=== PATIENT | female | born 1975 | race Caucasian/White ===

== ENCOUNTER → 2016-08-30 | Outpatient (CLI) | payer OTHER ==
[~2016-08-30] MED LIST: CETI10CA PO; DICY20TA10 PO; DOCU-143 PO; DOCU100T7 PO; FERR-57 PO; FLUO10CA19 PO; FLUO20CA25 PO; HYDR-3812 PO; HYDR-757 PO; HYOS0.1234 PO; IBP600T1 PO; LEVO1TAB72 PO; ONDA8TAB9 PO; OXYC-12 PO; OXYC-197 PO; PREN1TAB39 PO
--- OUTSIDE RECORDS SUMMARY | 2016-08-30 09:15 | XMS REPORT ---
Author Author MARIANO LUCERO [facility] eClinicalWorks Address Unknown Phone Unavailable Care Team Providers Care Manager Shell Name Role Phone MARIANO LUCREO CP Unavailable Allergies, Adverse Reactions, Alerts Substance Reaction Event Type Penicillins hives Non Drug Allergy Wellbutrin 100 Mg Tablet twitching of eye Non Drug Allergy Problems Problem Type Condition ICD-9 Code Onset Dates Condition Status Problem Allergic rhinitis, cause unspecified 477.9 Active Problem Acute sinusitis, unspecified 461.9 Active Problem Cough 786.2 Active Problem Unspecified iron deficiency anemia 280.9 Active Problem Ingrowing nail 703.0 Active Problem Allergic rhinitis 477.9 Active Problem Unspecified episodic mood disorder 296.90 Active Problem General counseling for prescription of oral contraceptives V25.01 Active Problem Other malaise and fatigue 780.79 Active Problem Generalized anxiety disorder 300.02 Active Assessment Allergic rhinitis 477.9 Active Problem Irritable bowel syndrome 564.1 Active Problem DTAP TEST V06.1 Active Problem Unspecified vaginitis and vulvovaginitis 616.10 Active Medications Medication Code System Code Instructions Start Date End Date Status Dosage Falmina [facility] [place] [address]-45 0.1-20 MG-MCG Orally Once a day 1 tablet Multi Vitamin Daily [facility] [place] 2] [address] Orally Once a day 1 tablet Hyoscyamine Sulfate [facility] [place] 2] [address]-46 0.375 mg 2 times a day January 03, 2012 1 tablet on the tongue and allow to dissolve before meals as needed Acidophilus [facility] [place] 2] [address]-82 November 25, 2013 1 Capsule by Oral route 1 time per day Cetirizine HCl [facility] [place] 2] 04636103219 10 MG TAKE ONE TABLET BY MOUTH DAILY Famotidine [facility] [place]NOTE 2] [address]-62 20 MG Orally 2 times a day January 28, 2015 1 tablet at bedtime BuSpar NDC 0 10 mg January 14, 2014 take 1 tablet (10 mg) by oral route 2 times per day Procedures Procedure Coding System Code Date KENALOG 40 MG/ML (PER 10 MG) CPT-4 J3301 Apr 22, 2015 THER/PROPH/DIAG INJ, SC/IM CPT-4 01082 Apr 22, 2015 Office Visit, Est Pt., Level 3 CPT-4 12052 Apr 22, 2015 Vital Signs Date/Time: Apr 22, 2015 Temperature 98.6 F Weight 153.4 lbs Height 63 in BMI 27.17 Index Blood Pressure Diastolic 66 mmHg Blood Pressure Systolic 118 mmHg Cardiac Monitoring Heart Rate 68 bpm Results No Known Results Summary Purpose eClinicalWorks Submission
--- NOTE | 2016-08-30 16:34 | Diagnostic Imaging Report ---
Exam: Ultrasound of the right axilla. Indication: Lump in the axilla. Findings: The area of palpable lump in the right axilla was scanned with no underlying abnormality seen. Impression: Negative study. The patient had a screening mammogram in July performed at [facility] and was reportedly negative. The mammogram might not include the entire axilla however. Clinical followup is recommended. BI-RADS 1. Dictated by: Dictated on workstation # [id number]
== END ==
LOC: RAD 09:12
PROVIDERS: ATTEND Nurse Practitioner Family
DX: N63 Unspecified lump in breast (principal)

== ENCOUNTER 2016-11-06 16:02 | Emergency (ER) | payer OTHER ==
[~2016-11-06] VITALS: Ht 162.6 cm; Wt 68.0 kg
[~2016-11-06 16:02] MED LIST changes: -DICY20TA10 PO; -DOCU-143 PO; -HYDR-3812 PO; -HYDR-757 PO; -LEVO1TAB72 PO; -ONDA8TAB9 PO; -OXYC-197 PO
[2016-11-06] MEDS ORDERED: DICY20TA10 PO (16:55)
[2016-11-06] MEDS ORDERED: LEVO1TAB72 PO (16:55)
[2016-11-06] MEDS ORDERED: CETI10CA PO (16:55)
[2016-11-06] MEDS ORDERED: fentaNYL INJECTION 100 MCG/2 ML AMP IVP ONE ×2 (17:00→18:00)
[2016-11-06] MEDS ORDERED: ONDANSETRON 4 MG/2 ML (SDV) Z0FRAN IVP ONE (17:00)
--- NOTE | 2016-11-06 17:01 | ED Abdominal Pain ---
General Chief Complaint: Abdominal/GI Problems Stated Complaint: ABD PAIN Nursing Triage Note: Pt c/o upper abd pain and nausea since this morning. Sepsis Screen: No Definite Risk Source of Information: Patient Exam Limitations: No Limitations History of Present Illness Time Seen By Provider: 17:00 Initial Comments To ER with epigastric abdominal pain. This radiates through to her back. Began this morning at 11 a.m. Last meal was at 10 a.m. and she had scrambled eggs at that time. She does to have her gallbladder. No fevers or chills. No change in bowel habits or dysuria. Timing/Duration: 4-6 Hours Severity/Quality: Severe Location: Epigastric Radiation: Back Activities at Onset: None Associated Symptoms: Nausea/Vomiting Allergies and Home Medications Allergies Coded Allergies: Penicillins (Unverified Allergy, 05/26/11) Home Medications Cetirizine HCl 10 Mg Capsule 10 MG PO DAILY (Reported) Dicyclomine HCl 20 Mg Tablet #120 20 MG PO DAILY (Reported) Levonorgestrel-Ethin Estradiol 1 Each Tablet #84 1 TAB PO DAILY (Reported) Review of Systems Constitutional: see HPINo chills, No fever EENTM: No Symptoms Reported Respiratory: No Symptoms Reported Cardiovascular: No Symptoms Reported Gastrointestinal: See HPI Abdominal Pain Genitourinary: No Symptoms Reported Musculoskeletal: no symptoms reported Skin: no symptoms reported Psychiatric/Neurological: No Symptoms Reported Endocrine: No Symptoms Reported Hematologic/Lymphatic: No Symptoms Reported Past Bpbanyd-Oeguvw-Bjbjun Hx Patient Social History Alcohol Use: Occasionally Uses Recreational Drug Use: No Smoking Status: Never a Smoker Recent Foreign Travel: No Contact w/Someone Who Travel: No Recent Infectious Disease Expo: No Recent Hopitalizations: No Seasonal Allergies Seasonal Allergies: Yes Surgeries HX Surgeries: Yes Surgeries: Appendectomy, Section, Tonsillectomy Respiratory Hx Respiratory Disorders: No Cardiovascular Hx Cardiac Disorders: No Neurological Hx Neurological Disorders: No Reproductive System Hx Reproductive Disorders: No Genitourinary Hx Genitourinary Disorders: No Gastrointestinal Hx Gastrointestinal Disorders: Yes Gastrointestinal Disorders: Irritable Bowel Musculoskeletal Hx Musculoskeletal Disorders: No Endocrine Hx Endocrine Disorders: No HEENT HX ENT Disorders: No Cancer Hx Cancer: No Psychosocial Hx Psychiatric Problems: No Blood Transfusions Hx Blood Disorders: No Physical Exam Vital Signs VS - Last 72 Hours, by Label 11/06/16 16:51 Temp 97.6 Pulse 68 Resp 18 B/P 122/65 Pulse Ox 100 O2 Delivery Room Air Capillary Refill : Less Than 3 Seconds General Appearance: WD/WN no apparent distress HEENT: PERRL/EOMI normal ENT inspection Neck: non-tender full range of motion Respiratory: normal breath sounds no respiratory distress no accessory muscle use Cardiovascular: regular rate, rhythm no murmur Gastrointestinal: normal bowel sounds soft tenderness Extremities: normal range of motion non-tender Neurologic/Psychiatric: alert normal mood/affect oriented x 3 Skin: normal color warm/dry Focused Exam Lactic Acid Level Laboratory Tests Test 11/06/16 17:40 Alanine Aminotransferase (ALT/SGPT) 24U/L (0-55) Albumin 4.1G/DL (3.2-4.5) Alkaline Phosphatase 50U/L (40-136) Anion Gap 12MMOL/L (5-14) Aspartate Amino Transf (AST/SGOT) 17U/L (5-34) BUN/Creatinine Ratio 14 Blood Urea Nitrogen 10MG/DL (7-18) Calcium Level 9.5MG/DL (8.5-10.1) Carbon Dioxide Level 21MMOL/L (21-32) Chloride Level 103MMOL/L (98-107) Creatinine 0.74MG/DL (0.60-1.30) Estimat Glomerular Filtration Rate > 60 Glucose Level 117MG/DL (70-105) H Lipase 6U/L (8-78) L Potassium Level 3.8MMOL/L (3.6-5.0) Sodium Level 136MMOL/L (135-145) Total Bilirubin 0.8MG/DL (0.1-1.0) Total Protein 7.2G/DL (6.4-8.2) Progress/Results/Core Measures Results/Orders Lab Results Laboratory Tests Test 11/06/16 17:10 11/06/16 17:40 11/06/16 17:56 Range/Units Basophils # (Auto) 0.0 0.0-0.1 10^3/uL Basophils (%) (Auto) 0 0-10 % Eosinophils # (Auto) 0.1 0.0-0.3 10^3/uL Eosinophils (%) (Auto) 1 0-10 % Hematocrit 41 35-52 % Hemoglobin 14.0 11.5-16.0 G/DL Lymphocytes # (Auto) 1.5 1.0-4.0 X 10^3 Lymphocytes (%) (Auto) 13 12-44 % Mean Corpuscular Hemoglobin 31 25-34 PG Mean Corpuscular Hemoglobin Concent 34 32-36 G/DL Mean Corpuscular Volume 92 80-99 FL Mean Platelet Volume 10.2 7.4-10.4 FL Monocytes # (Auto) 0.5 0.0-1.0 X 10^3 Monocytes (%) (Auto) 4 0-12 % Neutrophils # (Auto) 9.7 H 1.8-7.8 X 10^3 Neutrophils (%) (Auto) 82 H 42-75 % Platelet Count 227 130-400 10^3/uL Red Blood Count 4.46 4.35-5.85 10^6/uL Red Cell Distribution Width 11.6 10.0-14.5 % White Blood Count 11.8 H 4.3-11.0 10^3/uL Alanine Aminotransferase (ALT/SGPT) 24 0-55 U/L Albumin 4.1 3.2-4.5 G/DL Alkaline Phosphatase 50 40-136 U/L Anion Gap 12 5-14 MMOL/L Aspartate Amino Transf (AST/SGOT) 17 5-34 U/L BUN/Creatinine Ratio 14 Blood Urea Nitrogen 10 7-18 MG/DL Calcium Level 9.5 8.5-10.1 MG/DL Carbon Dioxide Level 21 21-32 MMOL/L Chloride Level 103 98-107 MMOL/L Creatinine 0.74 0.60-1.30 MG/DL Estimat Glomerular Filtration Rate > 60 Glucose Level 117 H 70-105 MG/DL Lipase 6 L 8-78 U/L Potassium Level 3.8 3.6-5.0 MMOL/L Sodium Level 136 135-145 MMOL/L Total Bilirubin 0.8 0.1-1.0 MG/DL Total Protein 7.2 6.4-8.2 G/DL Urine Bacteria TRACE /HPF Urine Bilirubin NEGATIVE NEGATIVE Urine Casts NONE /LPF Urine Clarity CLEAR Urine Color YELLOW Urine Crystals NONE /LPF Urine Culture Indicated NO Urine Glucose (UA) NEGATIVE NEGATIVE Urine Ketones 4+ H NEGATIVE Urine Leukocyte Esterase 1+ H NEGATIVE Urine Mucus NEGATIVE /LPF Urine Nitrite NEGATIVE NEGATIVE Urine Protein NEGATIVE NEGATIVE Urine RBC 2-5 H /HPF Urine RBC (Auto) 3+ H NEGATIVE Urine Specific [place] 1.030 H 1.016-1.022 Urine Squamous Epithelial Cells 2-5 /HPF Urine Urobilinogen NORMAL NORMAL MG/DL Urine WBC 0-2 /HPF Urine pH 5 5-9 My Orders Orders-HERNAN DELUCA APRN Cbc With Automated Diff (11/06/16 16:55) Comprehensive Metabolic Panel (11/06/16 16:55) Lipase (11/06/16 16:55) Ua Culture If Indicated (11/06/16 16:55) Ondansetron Injection (Zofran Injectio (11/06/16 17:00) Fentanyl Injection (Sublimaze Injection (11/06/16 17:00) Fentanyl Injection (Sublimaze Injection (11/06/16 18:00) Us Gallbladder [id number] (11/06/16 18:12) Ketorolac Injection (Toradol Injection) (11/06/16 18:45) Promethazine Injection (Phenergan Injec (11/06/16 18:45) Oxycodone/Apap 5/325mg Tablet (Percocet (11/06/16 20:00) Medications Given in ED Current Medications Medications Dose Ordered Sig/Freedom Route Start Time Stop Time Status Last Admin Dose Admin Fentanyl Citrate 50 mcg ONCE ONCE IVP 11/06/16 17:00 11/06/16 17:01 DC 11/06/16 17:25 50 MCG Fentanyl Citrate 75 mcg ONCE ONCE IVP 11/06/16 18:00 11/06/16 18:01 DC 11/06/16 18:00 75 MCG Ketorolac Tromethamine 30 mg ONCE ONCE IVP 11/06/16 18:45 11/06/16 18:46 DC 11/06/16 18:41 30 MG Ondansetron HCl 8 mg ONCE ONCE IVP 11/06/16 17:00 11/06/16 17:01 DC 11/06/16 17:25 8 MG Promethazine HCl 12.5 mg ONCE ONCE IVP 11/06/16 18:45 11/06/16 18:46 DC 11/06/16 18:42 12.5 MG Vital Signs/I&O Vital Sign - Last 12Hours 11/06/16 16:51 Temp 97.6 Pulse 68 Resp 18 B/P 122/65 Pulse Ox 100 O2 Delivery Room Air Blood Pressure Mean: 84 Diagnostic Imaging Diagonstic Imaging: Ultrasound Comments NAME: ALEX MEDRANO MED REC#: [id number] PT STATUS: REG ER : 1975 PHYSICIAN: HERNAN DELUCA APRN ADMIT DATE: 11/06/16/ER Draft Date of Exam:11/06/16 US GALLBLADDER [id number] PROCEDURE: US gallbladder. TECHNIQUE: Multiple real-time grayscale images were obtained over the right upper quadrant in various projections. INDICATION: Right-sided abdominal pain. COMPARISON: No comparison available. FINDINGS: The visualized portions of the pancreas are unremarkable. There is no evidence of focal intrahepatic abnormality. There is no intrahepatic biliary dilatation. The gallbladder is distended measuring up to 10.3 cm in length x 4.4 cm in transverse dimension. There are multiple gallstones demonstrated within the gallbladder. There is no evidence of gallbladder wall thickening or pericholecystic fluid. The common bile duct appears normal in caliber. Right kidney is nonobstructed. There is no ascites. IMPRESSION: 1. There are multiple gallstones demonstrated within the gallbladder. The gallbladder appears distended. There are, however, no additional signs to suggest cholecystitis. There is no gallbladder wall thickening or evidence of pericholecystic fluid. There is no evidence of abnormal biliary dilatation. There is no ascites or free fluid. Further assessment could be considered with nuclear HIDA scan. Dictated on workstation # [id number] Dict: 11/06/161946 Trans: 11/06/161954 [facility] [id number] Interpreted by: CALVIN DINH MD Electronically signed by: Departure Communication Progress Notes I did discuss the case with Dr. Dean who happens to be present in the emergency room. We'll discharge her to home and have her follow-up with him this week in the clinic. 2016-after 125 g of fentanyl and 2 separate doses, 8 mg of Zofran and 12.5 mg of Phenergan IV, and 30 mg of Toradol IV her pain is controlled as is her nausea. Impression Impression: Primary Impression: Symptomatic cholelithiasis Disposition: HOME, SELF-CARE Condition: Stable Departure-Patient Inst. Decision time for Depature: 20:15 Referrals: DARYA GOLDMAN MD (PCP/Family) Primary Care Physician KATIE DEAN DO Patient Instructions: Gallstones (DC) Add. Discharge Instructions: 1. Low fat low dairy product diet 2. Return to ER for any fevers, intolerable pain or vomiting 3. Pain pills and nausea pills as directed All discharge instructions reviewed with patient and/or family. Voiced understanding. Scripts Ondansetron (Zofran Odt)8 Mg Tab.rapdis8 Mg PO Q6H PRN NAUSEA #10 TAB Prov:HERNAN DELUCA JOURNAL ENTRY AUDIT CLERK 11/06/16 Hydrocodone/Acetaminophen ([place] 5-325 Tablet)1 Each Tablet1 Each PO Q4H PRN PAIN #20 TAB Prov:HERNAN DELUCA JOURNAL ENTRY AUDIT CLERK 11/06/16 HERNAN DELUCA APRN Nov 06, 2016 17:01
[2016-11-06 17:16] LABS: BASOPHILS % (AUTO) 0 % (0-10); EOSINOPHILS # (AUTO) 0.1 10^3/uL (0.0-0.3); EOSINOPHILS % (AUTO) 1 % (0-10); LYMPHOCYTES # (AUTO) 1.5 X 10^3 (1.0-4.0); LYMPHOCYTES % (AUTO) 13 % (12-44); MEAN CORPUSCULAR HEMOGLOBIN 31 PG (25-34); MEAN CORPUSCULAR HGB CONC 34 G/DL (32-36); MEAN CORPUSCULAR VOLUME 92 FL (80-99); MEAN PLATELET VOLUME 10.2 FL (7.4-10.4); MONOCYTES # (AUTO) 0.5 X 10^3 (0.0-1.0); MONOCYTES % (AUTO) 4 % (0-12); NEUTROPHILS # (AUTO) 9.7 X 10^3 (1.8-7.8); NEUTROPHILS % (AUTO) 82 % (42-75); PLATELET COUNT 227 10^3/uL (130-400); RED BLOOD COUNT 4.46 10^6/uL (4.35-5.85); RED CELL DISTRIBUTION WIDTH 11.6 % (10.0-14.5); WHITE BLOOD COUNT 11.8 10^3/uL (4.3-11.0)
[2016-11-06 18:03] LABS: BILIRUBIN,URINE NEGATIVE (NEGATIVE); KETONES,URINE 4+ (NEGATIVE); LEUKOCYTE ESTERASE ,URINE 1+ (NEGATIVE); NITRITE,URINE NEGATIVE (NEGATIVE); PH,URINE 5 (5-9); PROTEIN,URINE NEGATIVE (NEGATIVE); UROBILINOGEN,URINE NORMAL (NORMAL)
[2016-11-06 18:06] LABS: ALANINE AMINOTRANSFERASE 24 U/L (0-55); ALBUMIN 4.1 G/DL (3.2-4.5); ANION GAP 12 MMOL/L (5-14); ASPARTATE AMINO TRANSFERASE 17 U/L (5-34); BILIRUBIN,TOTAL 0.8 MG/DL (0.1-1.0); BLOOD UREA NITROGEN 10 MG/DL (7-18); BUN/CREATININE RATIO 14; CALCIUM 9.5 MG/DL (8.5-10.1); CARBON DIOXIDE 21 MMOL/L (21-32); CHLORIDE 103 MMOL/L (98-107); CREATININE SERUM 0.74 MG/DL (0.60-1.30); GFR ESTIMATED > 60; GLUCOSE 117 MG/DL (70-105); LIPASE 6 U/L (8-78); POTASSIUM 3.8 MMOL/L (3.6-5.0); SODIUM 136 MMOL/L (135-145); TOTAL PROTEIN 7.2 G/DL (6.4-8.2)
[2016-11-06 18:13] LABS: WBC,URINE 0-2 /HPF
[2016-11-06] MEDS ORDERED: PROMETHAZINE INJ 25 MG/ML (PHENERGAN) AMP IVP ONE (18:45)
[2016-11-06] MEDS ORDERED: KETOROLAC 30 MG/ML VIAL IVP ONE (18:45)
--- NOTE | 2016-11-06 19:55 | Diagnostic Imaging Report ---
PROCEDURE: US gallbladder. TECHNIQUE: Multiple real-time grayscale images were obtained over the right upper quadrant in various projections. INDICATION: Right-sided abdominal pain. COMPARISON: No comparison available. FINDINGS: The visualized portions of the pancreas are unremarkable. There is no evidence of focal intrahepatic abnormality. There is no intrahepatic biliary dilatation. The gallbladder is distended measuring up to 10.3 cm in length x 4.4 cm in transverse dimension. There are multiple gallstones demonstrated within the gallbladder. There is no evidence of gallbladder wall thickening or pericholecystic fluid. The common bile duct appears normal in caliber. Right kidney is nonobstructed. There is no ascites. IMPRESSION: 1. There are multiple gallstones demonstrated within the gallbladder. The gallbladder appears distended. There are, however, no additional signs to suggest cholecystitis. There is no gallbladder wall thickening or evidence of pericholecystic fluid. There is no evidence of abnormal biliary dilatation. There is no ascites or free fluid. Further assessment could be considered with nuclear HIDA scan. Dictated by: Dictated on workstation # [id number]
[2016-11-06] MEDS ORDERED: oxyCODONE/APAP 5/325MG (PERCOCET 5) TABLET PO ONE (20:00)
[2016-11-06] MEDS ORDERED: RX-ONDANSETRON 4 MG ODT (ZOFRAN) PPK #4 PO STA (20:14)
[2016-11-06] MEDS ORDERED: ONDA8TAB9 PO (20:16)
[2016-11-06] MEDS ORDERED: HYDR-757 PO (20:16)
[2016-11-06] MEDS ORDERED: OXYC-197 PO (20:28)
[2016-11-06 20:29] VITALS: BP 119/81
== END 2016-11-06 20:29 | disposition home or self-care (01) ==
LOC: EDUNIT# 16:02 → ER 16:03
DX: K80.20 Calculus of gallbladder without cholecystitis without obstruction (principal)
CPT/HCPCS: 36415; 76705; 80053; 81000; 83690; 85025; 96374; 96375; 96376; 99283

== ENCOUNTER 2016-11-08 09:43 | Outpatient (CLI) | payer OTHER ==
[~2016-11-08] VITALS: Ht 162.6 cm; Wt 67.2 kg
[~2016-11-08 09:43] MED LIST changes: +DICY20TA10 PO; +HYDR-757 PO; +LEVO1TAB72 PO; +ONDA8TAB9 PO; +OXYC-197 PO
[2016-11-08 09:58] VITALS: BP 108/69
[2016-11-11] MEDS ORDERED: DOCU-143 PO (12:59)
[2016-11-11] MEDS ORDERED: HYDR-3812 PO (12:59)
== END 2016-11-08 10:14 | disposition home or self-care (01) ==
LOC: PREOP 09:43
PROVIDERS: ATTEND Surgery
DX: Z01.818 Encounter for other preprocedural examination (principal); Z11.2 Encounter for screening for other bacterial diseases; K80.20 Calculus of gallbladder without cholecystitis without obstruction
CPT/HCPCS: 87081

== ENCOUNTER 2016-11-11 09:00 | Day surgery (SDC) | payer OTHER ==
[~2016-11-11] VITALS: Ht 162.6 cm; Wt 67.2 kg
[2016-11-11] MEDS: LACTATED RINGERS 1,000 ML IV PRN ×2 (09:00→12:35)
[2016-11-11] MEDS ORDERED: CLINDAMYCIN 600 MG/50 ML IVPB 50 ML IV ONE (09:15)
[2016-11-11 09:26] VITALS: BP 112/49
--- NOTE | 2016-11-11 10:26 | Progress Note-Pre Operative ---
Pre-Operative Progress Note H&P Reviewed The H&P was reviewed, patient examined and no changes noted. Date H&P Reviewed: Nov 11, 2016 Time H&P Reviewed: 10:26 Pre-Operative Diagnosis: SYMPTOMATIC CHOLELITHIASIS KATIE DEAN DO Nov 11, 2016 10:26
[2016-11-11] MEDS ORDERED: SEVOFLURANE (ULTANE) 15 ML INHAL SOLN ONE ×5 (10:42→13:03)
[2016-11-11] MEDS ORDERED: proPOfol 200 MG/20 ML (DIPRIVAN) VIAL IV ONE (10:42)
[2016-11-11] MEDS ORDERED: HURRICAINE EXT TUBE (BENZOCAINE) ONE (10:42)
[2016-11-11] MEDS ORDERED: LACTATED RINGERS 1,000 ML IV ONE (10:42)
[2016-11-11] MEDS ORDERED: LIDOCAINE PF 2% 10 ML (XYLOCAINE) AMP ONE (10:42)
[2016-11-11] MEDS ORDERED: DEXAMETHASONE PF 10 MG/ML (DECADRON) VIAL ONE (10:42)
[2016-11-11] MEDS ORDERED: ATRACURIUM 50 MG/5 ML (TRACRIUM) IV ONE (10:42)
[2016-11-11] MEDS ORDERED: MIDAZOLAM 2 MG/2 ML (VERSED) VIAL ONE (10:43)
[2016-11-11] MEDS ORDERED: fentaNYL INJECTION 100 MCG/2 ML AMP ONE ×2 (10:43→13:53)
[2016-11-11] MEDS ORDERED: BUPIVACAINE 0.5% 30 ML (SENSORCAINE) VIAL ONE (10:57)
[2016-11-11] MEDS ORDERED: LIDOCAINE 1% INJ 20 ML (XYLOCAINE) VIAL ONE (10:57)
--- NOTE | 2016-11-11 12:57 | Progress Note-Post Operative ---
Post-Operative Progess Note Video System Repairer Dr. Hawkins Pre-Operative Diagnosis SYMPTOMATIC CHOLELITHIASIS Post-Operative Diagnosis acute cholecystitis, cholelithiasis Post-Op Procedure Note Date of Procedure: Nov 11, 2016 Name of Procedure: lap gina c ioc Procedure Note/Findings see note Anesthesia Type general Estimated blood loss (mL): minimal Specimen(s) collected gallbladder KATIE DEAN DO Nov 11, 2016 12:57 pm
[2016-11-11] MEDS ORDERED: HYDR-3812 PO (12:59)
[2016-11-11] MEDS ORDERED: DOCU-143 PO (12:59)
[2016-11-11] MEDS ORDERED: HYDROcodone/APAP 5 MG/325 MG (LORTAB) TAB PO PRN (13:00)
--- NOTE | 2016-11-11 13:00 | Discharge Inst-Simple/Standard ---
Discharge Inst-Standard Discharge Medications New, Converted or Re-Newed RX: RX on Chart Patient Instructions/Follow Up Plan of Care/Instructions/FU: 2 weeks Krissy Activity as Tolerated: No Discharge Diet: Regular Diet Other Inst to Patient Follow up Appt: Make appointment for 2 weeks. Instructions: No lifting greater than 10 pounds. No strenuous activity. May shower in 24 hours, no tub bath or soaking. Use incentive spirometer at home as directed. No Smoking Skin/Wound Care: You have special glue over incisions it will fall off on its own. Symptoms to Report: Appetite Changes, Extremity Discoloration, Numbness/Tingling, Swelling Increased , Bleeding Excessive, Eyesight Changes, Pain Increased, Urine Color Change, Constipation(Persistent), Fever over 101 degree F, Pain/Pressure in chest, Urinating Difficulty, Cough Up/Vomit Blood, Heart Beat Irreg/Pounding, Pain/ Pressure in jaw, Vaginal Bleeding Increase, Cramps in feet or legs, Lightheadedness, Pain/Pressure in shoulder, Diarrhea(Persistent), Memory Changes Suddenly, Questions/Concerns, Weight gain consecutive days, Dizziness/ Fainting, Nausea/Vomiting, Shortness of Breath, Weight gain over 2 pounds. If eyes or skin turn yellow notify physician. If questions or concerns contact your physician Or seek help at emergency department. KATIE DEAN DO Nov 11, 2016 1:00 pm
[2016-11-11] MEDS ORDERED: MEPERIDINE (DEMEROL) INJ 50 MG/ML IV PRN (13:30)
[2016-11-11] MEDS ORDERED: PROMETHAZINE INJ 25 MG/ML (PHENERGAN) AMP IV PRN (13:30)
[2016-11-11] MEDS ORDERED: ONDANSETRON 4 MG/2 ML (SDV) Z0FRAN IV PRN (13:30)
[2016-11-11] MEDS ORDERED: fentaNYL INJECTION 100 MCG/2 ML AMP IV PRN (13:30)
[2016-11-11] MEDS: morphine INJ 10 MG/ML 1ML (SYR OR VIAL) IV PRN ×2 (13:32→13:40)
--- NOTE | 2016-11-11 13:58 | Diagnostic Imaging Report ---
INDICATION: Right upper quadrant pain. DISCUSSION: Fluoroscopic support was provided during intraoperative cholangiogram. Please see the operative report for full detail. Common bile duct is not dilated. There is progression of contrast into the duodenum. Fluoroscopy time: 8 seconds. 3 mL Omnipaque 300. IMPRESSION: Intraoperative cholangiogram. Dictated by: Dictated on workstation # [id number]
[2016-11-11 14:25] VITALS: BP 118/67
[2016-11-11 14:53] VITALS: BP 104/57
[2016-11-11 15:25] VITALS: BP 103/65
[2016-11-11 15:55] VITALS: BP 103/65
--- NOTE | 2016-11-12 09:48 | OPERATIVE REPORT ---
PROCEDURE PHYSICIAN: KATIE DEAN DATE OF PROCEDURE: 11/11/2016 PREOPERATIVE DIAGNOSIS: Symptomatic cholelithiasis. POSTOPERATIVE DIAGNOSIS: Acute cholecystitis, cholelithiasis. PROCEDURE: Laparoscopic cholecystectomy with intraoperative cholangiogram. SURGEON: Krissy. DELICATESSEN DEPARTMENT MANAGER: Dr. Hawkins, assist in retraction, dissection, and closure. ANESTHESIA: General. ESTIMATED BLOOD LOSS: Minimal. COMPLICATIONS: None. INDICATIONS: The patient is a 49-year-old female with right upper quadrant abdominal pain. She had a gallbladder ultrasound demonstrating cholelithiasis. She understands the risks and benefits of the procedure and wishes to proceed with procedures. Consent was signed on the chart. PROCEDURE: The patient was taken to the operating suite. She was prepped and draped in the sterile fashion. A surgical pause was performed. Local anesthetic was infiltrated of 0.50% Marcaine, 1% lidocaine at 50:50 ratio was injected just superior to the umbilicus. Number 15 blade scalpel was used to make an incision. Cautery was used to dissect down to the fascia. The fascia was scored and grasped with Kochers, elevated and the abdomen was entered, using 0 Vicryl in a [id number] stitch was placed. The balloon trocar was then placed and the balloon was insufflated and a pneumoperitoneum was achieved. Under direct visualization of the laparoscope, a 5 minute trocar was placed in the subxiphoid region and two 5-mm trocars were placed in the right upper quadrant. The gallbladder was inflamed and edematous and erythematous. The gallbladder was grasped, elevated. The cystic duct and cystic artery were then dissected out. Clips were placed in the distal portion of the cystic duct and clips were placed on proximal and distal portion of the cystic artery. The cystic duct was then partially transected and an arrow catheter was inserted and cholangiogram was then performed. There were no filling defects. Contrast made its way into the duodenum without any difficulty. The catheter was removed. Clips were placed on proximal portion of the cystic duct. This was then completely transected along with the cystic artery and then hook cautery was used to dissect the gallbladder from the gallbladder fossa achieving hemostasis. Once removed, it was placed in an Endobag and removed through the 12 mm trocar site. The abdomen was then re-insufflated. Hemostasis had been achieved. The abdomen was irrigated with copious amounts of irrigation and suction. The 12 mm fascial defect was closed with 0 Vicryl that was already placed in a [id number]-ai-ohtfm fashion. The trocars were removed. The skin was then closed using 4-0 Monocryl. The abdomen was then washed and dried and Dermabond was placed. The patient tolerated the procedure well without complication. She was taken to recovery in stable condition. Job ID: [id number] Dictated Date: 11/11/2016 13:18:18 Fisher Scallop Date: 11/12/2016 09:37:33 / jayson
--- OUTSIDE RECORDS SUMMARY | 2016-11-13 12:11 | XMS REPORT ---
Author Author MARIANO LUCERO [facility] eClinicalWorks Address Unknown Phone Unavailable Care Team Providers Care Professor Of Voice Name Role Phone MARIANO LUCERO CP Unavailable Allergies, Adverse Reactions, Alerts Substance [...] Start Date End Date Status Dosage Falmina [facility] [place] [address]-47 0.1-20 MG-MCG Orally Once a day 1 tablet Multi Vitamin Daily [facility] [place] [address] Orally Once a day 1 tablet Hyoscyamine Sulfate [facility] [place] [address]-26 0.375 mg 2 times a day January 03, 2012 1 tablet on the tongue and allow to dissolve before meals as needed Acidophilus [facility] [place] [address]-04 November 25, 2013 1 Capsule by Oral route 1 time per day Cetirizine HCl [facility] [place] [id number] 10 MG TAKE ONE TABLET BY MOUTH DAILY Famotidine [facility] [place] [address]-45 20 MG Orally 2 times a day January 28, 2015 1 tablet at bedtime BuSpar NDC 0 10 mg January 14, 2014 take 1 tablet (10 mg) by oral route 2 times per day Procedures Procedure Coding System Code Date KENALOG 40 MG/ML (PER 10 MG) CPT-4 J3301 Apr 22, 2015 THER/PROPH/DIAG INJ, SC/IM CPT-4 14087 Apr 22, 2015 Office Visit, Est Pt., Level 3 CPT-4 85071 Apr 22, 2015 Vital Signs Date/Time: Apr 22, 2015 Temperature 98.6 F Weight 153.4 lbs Height 63 in BMI 27.17 Index Blood Pressure Diastolic 66 mmHg Blood Pressure Systolic 118 mmHg Cardiac Monitoring Heart Rate 68 bpm Results No Known Results Summary Purpose eClinicalWorks Submission
--- OUTSIDE RECORDS SUMMARY | 2016-11-13 12:11 | XMS REPORT | Continuity of Care Document ---
Author Author [facility] Address Unknown Phone Unavailable Allergies Active Description Code Type Severity Reaction Onset Reported/Identified Relationship to Patient Clinical Status Yes Penicillins Drug Allergy N/A N/A 09/23/2011 Yes Penicillins Drug Allergy 09/23/2011 Yes Wellbutrin 100 mg Tablet Drug Allergy N/A N/A 10/19/2011 Yes Wellbutrin 100 mg Tablet Drug Allergy 10/19/2011 Medications Problems Date Dx Coded Attending Type Code Diagnosis Diagnosed By 04/19/2011 465.9 UPPER RESPIRATORY INFECTION 04/19/2011 465.9 UPPER RESPIRATORY INFECTION 04/19/2011 LEE FROST MD 465.9 UPPER RESPIRATORY INFECTION 04/19/2011 RAHEL TRACY APRN 465.9 UPPER RESPIRATORY INFECTION 04/19/2011 RAHEL TRACY APRN 465.9 UPPER RESPIRATORY INFECTION 04/19/2011 ABEL AVILEZ APRN 465.9 UPPER RESPIRATORY INFECTION 09/23/2011 296.90 MOOD DISORDER 09/23/2011 300.02 AN GEN ANXIETY 09/23/2011 780.79 MALAISE AND FATIGUE 09/23/2011 799.22 IRRITIBILITY 09/23/2011 296.90 MOOD DISORDER 09/23/2011 300.02 AN GEN ANXIETY 09/23/2011 780.79 MALAISE AND FATIGUE 09/23/2011 799.22 IRRITIBILITY 09/23/2011 LEE FROST MD 296.90 MOOD DISORDER 09/23/2011 LEE FROST MD 300.02 AN GEN ANXIETY 09/23/2011 LEE FROST MD 780.79 MALAISE AND FATIGUE 09/23/2011 LEE FROST MD 799.22 IRRITIBILITY 09/23/2011 RAHEL TRACY APRN 296.90 MOOD DISORDER 09/23/2011 RAHEL TRACY APRN 300.02 AN GEN ANXIETY 09/23/2011 RAHEL TRACY APRN 780.79 MALAISE AND FATIGUE 09/23/2011 RAHEL TRACY APRN 799.22 IRRITIBILITY 09/23/2011 RAHEL TRACY APRN 296.90 MOOD DISORDER 09/23/2011 RAHEL TRACY APRN T 300.02 AN GEN ANXIETY 09/23/2011 RAHEL TRACY APRN T 780.79 MALAISE AND FATIGUE 09/23/2011 RAHEL TRACY APRN 799.22 IRRITIBILITY 09/23/2011 ABEL AVILEZ APRN R 296.90 MOOD DISORDER 09/23/2011 ABEL AVILEZ APRN R 300.02 AN GEN ANXIETY 09/23/2011 ABEL AVILEZ APRN R 780.79 MALAISE AND FATIGUE 09/23/2011 ABEL AVILEZ APRN R 799.22 IRRITIBILITY 11/23/2011 V25.01 CONTRACEPTION - ORAL CONTRACEPTION 11/23/2011 V25.01 CONTRACEPTION - ORAL CONTRACEPTION 11/23/2011 LEE FROST MD V25.01 CONTRACEPTION - ORAL CONTRACEPTION 11/23/2011 RAHEL TRACY APRN V25.01 CONTRACEPTION - ORAL CONTRACEPTION 11/23/2011 RAHEL TRACY APRN V25.01 CONTRACEPTION - ORAL CONTRACEPTION 11/23/2011 ABEL AVILEZ APRN R V25.01 CONTRACEPTION - ORAL CONTRACEPTION 01/03/2012 564.1 IRRITABLE BOWEL SYNDROME 01/03/2012 564.1 IRRITABLE BOWEL SYNDROME 01/03/2012 LEE FROST MD N 564.1 IRRITABLE BOWEL SYNDROME 01/03/2012 RAHEL TRACY APRN 564.1 IRRITABLE BOWEL SYNDROME 01/03/2012 RAHEL TRACY APRN 564.1 IRRITABLE BOWEL SYNDROME 01/03/2012 ABEL AVILEZ APRN R 564.1 IRRITABLE BOWEL SYNDROME 03/21/2012 280.9 ANEMIA, IRON DEFICIENCY 03/21/2012 703.0 NAIL INGROWN 03/21/2012 280.9 ANEMIA, IRON DEFICIENCY 03/21/2012 703.0 NAIL INGROWN 03/21/2012 LEE FROST MD 280.9 ANEMIA, IRON DEFICIENCY 03/21/2012 LEE FROST MD 703.0 NAIL INGROWN 03/21/2012 RAHEL TRACY APRN 280.9 ANEMIA, IRON DEFICIENCY 03/21/2012 RAHEL TRACY APRN 703.0 NAIL INGROWN 03/21/2012 RAHEL TRACY APRN 280.9 ANEMIA, IRON DEFICIENCY 03/21/2012 RAHEL TRACY APRN 703.0 NAIL INGROWN 03/21/2012 ABEL AVILEZ APRN 280.9 ANEMIA, IRON DEFICIENCY 03/21/2012 ABEL AVILEZ APRN R 703.0 NAIL INGROWN 01/01/2013 V06.1 TDAP DX 01/01/2013 LEE FROST MD V06.1 TDAP DX 01/01/2013 RAHEL TRACY APRN V06.1 TDAP DX 01/01/2013 RAHEL TRACY APRN V06.1 TDAP DX 01/01/2013 ABEL AVILEZ APRN V06.1 TDAP DX 10/02/2013 LEE FROST MD N 616.10 VAGINITIS AND VULVOVAGINITIS UNSPECIFIED 10/02/2013 RAHEL TRACY APRN 616.10 VAGINITIS AND VULVOVAGINITIS UNSPECIFIED 10/02/2013 RAHEL TRACY APRN 616.10 VAGINITIS AND VULVOVAGINITIS UNSPECIFIED 10/02/2013 ABEL AVILEZ APRN 616.10 VAGINITIS AND VULVOVAGINITIS UNSPECIFIED 11/25/2013 RAHEL TRACY APRN 477.9 RHINITIS 11/25/2013 RAHEL TRACY APRN 477.9 RHINITIS 11/25/2013 ABEL AVILEZ APRN 477.9 RHINITIS 05/24/2014 ABEL AVILEZ APRN 461.9 SINUSITIS ACUTE 05/24/2014 ABEL AVILEZ APRN 786.2 COUGH Procedures Code Description [place] [address] UA W/ CULTURE IF INDICATED 10/02/2013 71299 CULTURE UROGENITAL 10/02/2013 83380 THERAPUTIC INJ SQ/IM 11/25/2013 J3301 KENALOG INJ, PER 10 MG 11/25/2013 08320 THERAPUTIC INJ SQ/IM 05/07/2014 J3301 KENALOG INJ, PER 10 MG 05/07/2014 Results Encounters ACCT No. Visit Date/Time Discharge Status Pt. Type Provider Facility Loc./Unit Complaint [id number] 05/24/2014 11:19:00 05/24/2014 23: 59:59 CLS Outpatient ABEL AVILEZ APRN [id number] 05/07/2014 11:57:00 05/07/2014 23: 59:59 CLS Outpatient RAHEL TRACY APRN [id number] 11/25/2013 10:34:00 11/25/2013 23: 59:59 CLS Outpatient RAHEL TRACY APRN [id number] 10/02/2013 09:56:00 10/02/2013 23: 59:59 CLS Outpatient LEE FROST MD [id number] 03/31/2012 11:09:00 03/31/2012 23: 59:59 CLS Outpatient [id number] 01/01/2013 13:38:00 Document Registration
--- OUTSIDE RECORDS SUMMARY | 2016-11-13 12:11 | XMS REPORT ---
Author Author FELIX NOEL [facility] Address [address] [place] [address] Care Team Providers Care Mortuary Operations Manager Name Role Phone FELIX NOEL Unavailable PROBLEMS Type Condition ICD9-CM Code [id number] Code Onset Dates Condition Status SNOMED Code Problem Acute sinusitis, unspecified 461.9 Active 68537530 Problem Unspecified episodic mood disorder 296.90 Active 272698050 Problem General counseling for prescription of oral contraceptives V25.01 Active 796348486 Problem Seasonal allergic rhinitis due to pollen J30.1 Active 37609961 Problem Allergic rhinitis 477.9 Active 20960101 Problem Other malaise and fatigue 780.79 Active 411997873 Problem Generalized anxiety disorder 300.02 Active 99920784 Problem Unspecified iron deficiency anemia 280.9 Active 16557505 Problem Ingrowing nail 703.0 Active 245301457 Problem DTAP TEST V06.1 Active Problem Unspecified vaginitis and vulvovaginitis 616.10 Active 356285690 Assessment Seasonal allergic rhinitis due to pollen J30.1 Jun, Active 87293902 Problem Allergic rhinitis, cause unspecified 477.9 Active 22245923 Problem Irritable bowel syndrome 564.1 Active 43818078 Problem Cough 786.2 Active 71879026 ALLERGIES Substance Reaction Event Type Date Status Wellbutrin Unknown Drug Allergy Jun, Active Penicillin V Potassium Unknown Drug Allergy Jun, Active SOCIAL HISTORY No smoking Hx information available PLAN OF CARE VITAL SIGNS Height 63 in 2016-07-20 Weight 153 lbs 2016-07-20 Heart Rate 72 bpm 2016-07-20 Respiratory Rate 16 2016-07-20 BMI 27.10 kg/m2 2016-07-20 Blood pressure systolic 100 mmHg 2016-07-20 Blood pressure diastolic 70 mmHg 2016-07-20 MEDICATIONS Medication Instructions Dosage Frequency Start Date End Date Duration Status Acidophilus 1 Capsule by Oral route 1 time per day Nov, Active Falmina 0.1-20 MG-MCG Orally Once a day 1 tablet 24h Active Cetirizine HCl 10 MG TAKE ONE TABLET BY MOUTH DAILY 100 Active Bentyl 20 mg Orally Once a day 1/2 tablet 24h Oct, Active BuSpar 10 mg take 1 tablet (10 mg) by oral route 2 times per day December Active Multi Vitamin Daily Orally Once a day 1 tablet 24h Active RESULTS No Results PROCEDURES Procedure Date Ordered Related Diagnosis Body Site KENALOG 40 MG/ML (PER 10 MG) Jul 20, 2016 THER/PROPH/DIAG INJ, SC/IM Jul 20, 2016 Office Visit, Est Pt., Level 3 Jul 20, 2016 IMMUNIZATIONS Vaccine Route Administration Date Status KENALOG 40 MG/ML (PER 10 MG) IM Intramuscular Jul 20, 2016 Administered
--- OUTSIDE RECORDS SUMMARY | 2016-11-13 12:11 | XMS REPORT ---
Author Author RAHEL TRACY [facility] [employer] Address Unknown Phone Unavailable Care Team Providers Care Brush Polisher Name Role Phone RAHEL TRACY CP Unavailable Allergies, Adverse Reactions, Alerts Substance Reaction Event Type Penicillins hives Non Drug Allergy Wellbutrin 100 Mg Tablet twitching of eye Non Drug Allergy Problems Problem Type Condition Code Onset Dates Condition Status Problem Allergic [...] Problem Generalized anxiety disorder 300.02 Active Assessment Third degree hemorrhoids K64.2 Active Problem Irritable bowel syndrome 564.1 Active Assessment Postnasal drip R09.82 Active Problem DTAP TEST V06.1 Active Assessment Allergic rhinitis, unspecified J30.9 Active Problem Unspecified vaginitis and vulvovaginitis 616.10 Active Medications Medication Code System Code Instructions Start Date End Date Status Dosage Falmina [facility] [address]-45 0.1-20 MG-MCG Orally Once a day 1 tablet Multi Vitamin Daily [facility] [address] Orally Once a day 1 tablet BuSpar NDC 0 10 mg January 14, 2014 take 1 tablet (10 mg) by oral route 2 times per day Cetirizine HCl [facility] 42314897005 10 MG TAKE ONE TABLET BY MOUTH DAILY Acidophilus [facility] [address]-80 November 25, 2013 1 Capsule by Oral route 1 time per day Proctosol HC [facility] [address]-64 2.5 % Rectal Twice a day Jul 27, 2015 1 application to affected area Procedures Procedure Coding System Code Date KENALOG 40 MG/ML (PER 10 MG) CPT-4 J3301 Jul 27, 2015 THER/PROPH/DIAG INJ, SC/IM CPT-4 37946 Jul 27, 2015 Office Visit, Est Pt., Level 3 CPT-4 75245 Jul 27, 2015 Vital Signs Date/Time: Jul 27, 2015 Temperature 98.6 F Weight 157.3 lbs Height 63 in BMI 27.86 Index Blood Pressure Diastolic 74 mmHg Blood Pressure Systolic 126 mmHg Cardiac Monitoring Heart Rate 80 bpm Results No Known Results Summary Purpose eClinicalWorks Submission
--- OUTSIDE RECORDS SUMMARY | 2016-11-13 12:12 | XMS REPORT ---
Author Author DENNY STEPHENS [facility] e[employer] Address Unknown Phone Unavailable Care Team Providers Care Sap Hana Architect Name Role Phone DENNY STEPHENS CP Unavailable Allergies No Known Allergies Problems Problem Type Condition Code Onset Dates [...] Problem Generalized anxiety disorder 300.02 Active Assessment Encounter for immunization Z23 Active Problem Irritable bowel syndrome 564.1 Active Problem DTAP TEST V06.1 Active Problem Unspecified vaginitis and vulvovaginitis 616.10 Active Medications No Known Medications Procedures Procedure Coding System Code Date SINGLE IMMUNIZATION ADMIN CPT-4 06688 Jun 11, 2015 FLUARIX QUAD (3 & UP)-GSK-2014 CPT-4 69544 Jun 11, 2015 Results No Known Results Immunizations Vaccine Administration Date FLUARIX QUAD (3 & UP)-GSK-2014Jun 11, 2015 Summary Purpose eClinicalWorks Submission
== END 2016-11-11 15:55 | disposition home or self-care (01) ==
LOC: DELPENDDIS → SDC 09:00
PROVIDERS: ATTEND Surgery
DX: K80.00 Calculus of gallbladder with acute cholecystitis without obstruction (principal)
CPT/HCPCS: 84703; 88304; 94664

== ENCOUNTER → 2018-10-15 | Outpatient (CLI) | payer OTHER ==
[~2018-10-15] MED LIST changes: +ACHD5005 PO; +DOCU-143 PO; +HYDR-4226 PO; -HYDR-757 PO; -OXYC-197 PO; +OXYC1TAB87 PO
--- NOTE | 2018-10-15 10:04 | Diagnostic Imaging Report ---
INDICATION: Screening. COMPARISON: 08/12/2016. TECHNIQUE: 3D tomosynthesis was performed and reviewed with CAD. FINDINGS: The fibroglandular tissue is heterogenously dense bilaterally. There is no dominant mass, spiculated lesion, or suspicious calcification is identified. The skin, nipples, and axillae are unremarkable. IMPRESSION: Negative bilateral mammograms. ACR BI-RADS Category 1: Negative. Result letter will be mailed to the patient. Note: At least 10% of breast cancer is not imaged by mammography. Dictated by: Dictated on workstation # [id number]
== END ==
LOC: RAD 07:48
PROVIDERS: ATTEND Obstetrics & Gynecology
DX: Z12.31 Encounter for screening mammogram for malignant neoplasm of breast (principal)
CPT/HCPCS: 77067

== ENCOUNTER → 2021-08-12 | Outpatient (CLI) | payer BC, OTHER ==
[~2021-08-12] MED LIST changes: +DICY20TA PO; -DICY20TA10 PO
--- NOTE | 2021-08-12 18:19 | Diagnostic Imaging Report ---
PROCEDURE: US Thyroid. TECHNIQUE: Multiple real-time grayscale images were obtained of the thyroid in various projections. INDICATION: Thyroid enlargement. COMPARISON: No prior studies are available for comparison. FINDINGS: Right lobe of the thyroid measures 5.6 x 1.4 x 1.8 cm and the left lobe measures 5.0 x 1.3 x 1.5 cm. Isthmus is 3 mm in thickness. There are cystic structures involving bilateral thyroid lobes, largest on the right. The largest cyst on the right is in lower pole measuring 16 mm x 7 mm x 8 mm. There is a second cyst adjacent to this measuring 11 mm x 9 mm x 11 mm. These likely represent colloid cysts. Subcentimeter cysts in the upper and lower pole of the left lobe are also noted. No solid thyroid mass is detected. IMPRESSION: Bilateral thyroid colloid cysts. No dominant solid thyroid mass is detected. Dictated by: Dictated on workstation # [id number]
--- NOTE | 2021-08-12 18:19 | Diagnostic Imaging Report ---
INDICATION: Pneumonia. TIME OF EXAM: 01:30 p.m. COMPARISON: No prior studies are available for comparison. FINDINGS: The heart size is normal. The pulmonary vascularity is unremarkable. The lungs are clear. No infiltrate, effusion or pneumothorax is detected. IMPRESSION: No acute cardiopulmonary process is detected. Dictated by: Dictated on workstation # [id number]
== END ==
LOC: RAD 13:00
PROVIDERS: ATTEND Family Medicine
DX: E04.2 Nontoxic multinodular goiter (principal); J18.9 Pneumonia, unspecified organism; D72.829 Elevated white blood cell count, unspecified
CPT/HCPCS: 71046; 76536

== ENCOUNTER → 2022-11-08 | Outpatient (CLI) | payer BC, OTHER ==
--- NOTE | 2022-11-08 14:51 | Diagnostic Imaging Report ---
PROCEDURE: US Thyroid. TECHNIQUE: Multiple real-time grayscale images were obtained of the thyroid in various projections. INDICATION: Followup thyroid cysts COMPARISON: 08/12/2021 FINDINGS: Right thyroid lobe: Size (cm): 5.6 x 1.2 x 1.8 Echotexture: Normal Vascularity: Normal Nodules: There are 2 cystic nodules in the mid to inferior right thyroid, the larger measuring 1.7 cm and the smaller measuring 1.2 cm. Both have calcifications with comet tail artifacts. (TI-RADS 1) Isthmus: Size (cm): 0.2 Nodules: None Left thyroid lobe: Size (cm): 4.9 x 1.2 x 1.8 Echotexture: Normal Vascularity: Normal Nodules: There are multiple small cystic nodules in the left thyroid. The largest measures up to 4 mm in size. Impression: 1. Multiple cystic nodules in the thyroid. These do not qualify for followup based on TI-RADS criteria. Dictated by: Dictated on workstation # [id number]
== END ==
LOC: RAD 13:15
PROVIDERS: ATTEND Family Medicine
DX: E04.2 Nontoxic multinodular goiter (principal)
CPT/HCPCS: 76536